=== PATIENT | female | born 1960 | race Caucasian/White ===

== ENCOUNTER 2019-03-19 06:57 | Emergency (ER) | payer BC ==
[~2019-03-19] VITALS: Ht 167.6 cm; Wt 108.9 kg
[2019-03-19] MEDS ORDERED: BUPROPION XL150 MG PO (07:26)
[2019-03-19] MEDS ORDERED: DEXTROAMPHETAMIN5 M2 PO (07:27)
[2019-03-19] MEDS ORDERED: ALPRAZOLAM1 MG PO ×2 (07:28→07:29)
[2019-03-19] MEDS ORDERED: DESVENLAFAXINE100 MG PO (07:29)
[2019-03-19 07:49] LABS: ABSOLUTE NEUTROPHILS 2.9 thou/uL (1.4-8.2); BASOPHILS 0.3 % (0.0-2.0); EOSINOPHILS 4.1 % (0.0-3.0); HEMATOCRIT 41.5 % (37.0-47.0); HEMOGLOBIN 13.7 gm/dL (12.0-15.0); LYMPHOCYTES 24.6 % (24.0-44.0); MCH 29.7 pg (26.0-34.0); MCHC 33.1 g/dL (28.0-37.0); MCV 89.8 fL (80.0-100.0); MONOCYTES 6.4 % (1.0-8.0); PLATELET COUNT 242 thou/uL (150-400); POLYS 64.6 % (36.0-66.0); RBC 4.62 mil/uL (4.20-5.00); RDW 12.6 % (10.5-14.5); WBC 4.5 thou/uL (4.0-11.0)
[2019-03-19] MEDS ORDERED: ONDANSETRON ODT8 MG PO (07:54)
[2019-03-19 08:06] LABS: ANION GAP 9 mmol/L (7-16); BUN 9 mg/dL (7-18); CALCIUM 9.4 mg/dL (8.5-10.1); CHLORIDE 105 mmol/L (98-107); CO2 27 mmol/L (21-32); CREATININE 0.8 mg/dL (0.6-1.0); GLUCOSE 114 mg/dL (74-106); POTASSIUM 3.6 mmol/L (3.5-5.1); SODIUM 141 mmol/L (136-145)
[2019-03-19 08:13] LABS: URINE BILIRUBIN NEGATIVE (Negative); URINE BLOOD NEGATIVE (Negative); URINE CLARITY CLEAR; URINE COLOR YELLOW; URINE GLUCOSE-RANDOM* NEGATIVE (Negative); URINE KETONES NEGATIVE (Negative); URINE LEUKOCYTES-REFLEX NEGATIVE (Negative); URINE NITRITE-REFLEX NEGATIVE (Negative); URINE PROTEIN (DIPSTICK) NEGATIVE (Negative); URINE UROBILINOGEN 0.2 E.U./dl (0.2-1.0)
[2019-03-19 08:17] LABS: ALBUMIN 3.4 g/dL (3.4-5.0); SGOT 21 U/L (15-37); SGPT 30 U/L (30-65); TOTAL BILIRUBIN 0.4 mg/dL (<0.1-1.0); TOTAL PROTEIN 7.2 g/dL (6.4-8.2); TROPONIN-I <0.06 ng/mL (<0.06)
[2019-03-19 08:25] LABS: SSA (PROTEIN CONFIRMATORY) NEGATIVE (Negative)
--- NOTE | 2019-03-19 08:37 | EKG ---
[facility] [address] [place] [address] ELECTROCARDIOGRAM REPORT Name: CHIQUITA HUBBARD Room #: REG Rad#: [id number] Admission: 03/19/19 Attend Phys: Discharge: Date of : 64 Report #: [id number] THIS REPORT FOR: //name// [facility] ED Test Date: 2019-03-19 Test Time: 07:15:32 Pat Name: CHIQUITA HUBBARD Department: Room: Gender: F Collections Clerk: : 1960 Requested By: Jayden Augustine Order Number: [id number] MD: Eric Tracy Measurements Intervals [place] Rate: 70 P: 34 OR: 174 QRS: 5 QRSD: 103 T: -7 QT: 404 QTc: 436 Interpretive Statements Sinus rhythm Poor R wave progression Borderline T abnormalities, inferior leads Baseline wander in lead(s) V5 No previous ECG available for comparison Electronically Signed On 03-19-2019 8:37:06 [employer]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
[2019-03-19 08:48] VITALS: BP 134/62
== END 2019-03-19 08:55 | disposition home or self-care (01) ==
LOC: ER 06:57
PROVIDERS: Emergency Medicine
DX: R55 Syncope and collapse (principal); R11.2 Nausea with vomiting, unspecified; E86.0 Dehydration; Z88.6 Allergy status to analgesic agent